=== PATIENT | female | born 1980 | race Caucasian/White ===

== ENCOUNTER → 2017-04-15 | Outpatient (CLI) | payer MEDICARE, MEDICAID ==
[~2017-04-15] MED LIST: 00186-0372-20 IH; ALBUTEROL0.83 MG/ML IH; BACTRIM DS 8001 TAB PO; CHANTIX START M1 TAB PO; EXCEDRIN TENSIO1 TAB PO; FERROUS SULFATE65 MG PO; GLUCOPHAGE500 MG/TAB PO; IMITREX100 MG PO; LEXAPRO20 MG PO; NORCO 325 MG-51 TAB PO; NUVARING VAG RING VG; PERCOCET 325 MG1 TA2 PO; PHENERGAN 25 TA25 MG PO; PRENATAL1 TA7 PO; PRILOSEC 20MG20 MG PO; PROAIR HFA0.09 MG/AC IH; REGLAN 10MG10 MG/TAB PO; ROBAXIN 50500 MG/TAB PO; VITAMIN B-6100 MG PO; VITAMINC1000TA PO; ZYRTEC 10MG10 MG PO
[2017-04-15 17:42] LABS: ALBUMIN 4.1 gm/dL (3.5-5.0); BILIRUBIN,TOTAL 0.5 mg/dL (0.0-1.0); CALCIUM 9.4 mg/dL (8.4-10.2); CHOLESTEROL RISK RATIO 3.1; CREATININE, serum 0.96 mg/dL (0.52-1.25); POTASSIUM 4.2 mmol/L (3.4-5.0); TOTAL PROTEIN 7.2 gm/dL (6.4-8.2)
[2017-04-15 18:10] LABS: TSH w REFLEX 1.82 uIU/mL (0.465-4.680)
== END ==
LOC: COL.LAB 11:52
PROVIDERS: Family Medicine
DX: E66.9 Obesity, unspecified (principal)

== ENCOUNTER → 2017-04-15 | Outpatient (CLI) | payer MEDICARE, MEDICAID ==
[~2017-04-15] VITALS: Ht 175.3 cm; Wt 167.4 kg
[2017-04-15 09:40] VITALS: BP 110/54; PULSE 64
== END ==
LOC: LIGHT 09:26
DX: E28.2 Polycystic ovarian syndrome (principal); K21.9 Gastro-esophageal reflux disease without esophagitis; E66.01 Morbid (severe) obesity due to excess calories; Z68.43 Body mass index [BMI] 50.0-59.9, adult; Z71.3 Dietary counseling and surveillance; M15.9 Polyosteoarthritis, unspecified
CPT/HCPCS: G0463

== ENCOUNTER 2017-04-16 20:30 | Emergency (ER) | payer MEDICARE, MEDICAID ==
[~2017-04-16] VITALS: Ht 175.3 cm; Wt 167.7 kg
[2017-04-16 20:31] VITALS: TEMP 98.3
[2017-04-16 21:17] LABS: BASO # 0.1 (0.0-0.2); BASO % 0.3 % (0.0-2.0); EOS # 0.2 (0.0-0.7); EOS % 1.2 % (0-4.0); GRAN # 13.5 (1.4-6.5); GRAN % 78.5 % (42.2-75.2); HEMATOCRIT 42.4 % (37.0-47.0); HEMOGLOBIN 14.2 g/dl (12.5-16.0); LYMPH # 2.2 (1.2-3.4); LYMPH % 12.9 % (20.0-51.0); MEAN CELL VOLUME 91 fl (80.0-100.0); MEAN CORPUSCULAR HEMOGLOBIN 31 pg (27.0-31.0); MEAN CORPUSCULAR HGB CONC 34 g/dl (33.0-37.0); MEAN PLATELET VOLUME 9.7 fl (7.4-10.4); MONO # 1.1 (0.1-0.6); MONO % 6.3 % (1.7-9.3); PLATELET COUNT 249 K/mm3 (130-400); RED BLOOD COUNT 4.64 M/mm3 (4.10-5.30)
[2017-04-16 21:42] LABS: ALBUMIN 4.1 gm/dL (3.5-5.0); BILIRUBIN,TOTAL 0.7 mg/dL (0.0-1.0); C-REACTIVE PROTEIN 7.1 mg/dL (0.0-0.9); CALCIUM 9.3 mg/dL (8.4-10.2); CREATININE, serum 0.96 mg/dL (0.52-1.25); TOTAL PROTEIN 7.6 gm/dL (6.4-8.2)
[2017-04-16] MEDS ORDERED: PERCOCET 325 MG1 TA2 PO (23:41)
[2017-04-16 23:49] VITALS: BP 132/78; PULSE 88
== END 2017-04-16 23:47 | disposition home or self-care (01) ==
LOC: COL.ER 20:30
PROVIDERS: Emergency Medicine
DX: L02.31 Cutaneous abscess of buttock (principal); L03.317 Cellulitis of buttock; K21.9 Gastro-esophageal reflux disease without esophagitis; J45.909 Unspecified asthma, uncomplicated; E66.01 Morbid (severe) obesity due to excess calories; M54.5 Low back pain; G89.29 Other chronic pain; Z68.43 Body mass index [BMI] 50.0-59.9, adult
CPT/HCPCS: J3010; J7030; J7050; Q9967

== ENCOUNTER → 2018-07-21 | Outpatient (CLI) | payer MEDICARE, MEDICAID ==
[~2018-07-21] VITALS: Ht 175.3 cm; Wt 162.6 kg
[~2018-07-21] MED LIST changes: +IBU800 M1 PO
[2018-07-21 14:03] VITALS: BP 136/70; PULSE 72
== END ==
LOC: LIGHT 13:33
DX: E28.2 Polycystic ovarian syndrome (principal); F31.81 Bipolar II disorder; G43.909 Migraine, unspecified, not intractable, without status migrainosus; E66.01 Morbid (severe) obesity due to excess calories; Z68.43 Body mass index [BMI] 50.0-59.9, adult; Z71.3 Dietary counseling and surveillance
CPT/HCPCS: G0463

== ENCOUNTER → 2018-08-16 | Outpatient (CLI) | payer MEDICARE, MEDICAID | LOC: LIGHT 13:31 | DX: Z76.89 Persons encountering health services in other specified circumstances (principal); E66.01 Morbid (severe) obesity due to excess calories ==

== ENCOUNTER → 2018-09-22 | Outpatient (CLI) | payer MEDICARE, MEDICAID ==
[~2018-09-22] VITALS: Ht 175.3 cm; Wt 166.9 kg
[2018-09-22 09:37] VITALS: BP 130/90; PULSE 60
== END ==
LOC: LIGHT 08-02 11:27
DX: E28.2 Polycystic ovarian syndrome (principal); F31.81 Bipolar II disorder; G43.909 Migraine, unspecified, not intractable, without status migrainosus; E66.01 Morbid (severe) obesity due to excess calories; Z68.43 Body mass index [BMI] 50.0-59.9, adult; Z71.3 Dietary counseling and surveillance
CPT/HCPCS: G0463

== ENCOUNTER 2018-10-15 18:29 | Emergency (ER) | payer MEDICARE, MEDICAID ==
[~2018-10-15] VITALS: Ht 175.3 cm; Wt 160.5 kg
[2018-10-15 18:36] VITALS: BP 133/66; PULSE 77; TEMP 98.6
[2018-10-15] MEDS ORDERED: PROAIR HFA0.09 MG/AC IH (18:51)
[2018-10-15] MEDS ORDERED: FLEXERIL 1010 MG/TAB PO (19:20)
== END 2018-10-15 19:25 | disposition home or self-care (01) ==
LOC: COL.ER 18:29
DX: M54.5 Low back pain (principal); G89.29 Other chronic pain; F31.9 Bipolar disorder, unspecified; F17.210 Nicotine dependence, cigarettes, uncomplicated; Z79.1 Long term (current) use of non-steroidal anti-inflammatories (NSAID)
CPT/HCPCS: J1170

== ENCOUNTER 2018-10-23 17:48 | Emergency (ER) | payer MEDICARE, MEDICAID ==
[~2018-10-23] VITALS: Ht 175.3 cm; Wt 160.5 kg
[~2018-10-23 17:48] MED LIST changes: +FLEXERIL 1010 MG/TAB PO
[2018-10-23 17:57] VITALS: BP 146/66; TEMP 97.9
[2018-10-23] MEDS ORDERED: FLEXERIL 1010 MG/TAB PO (19:32)
[2018-10-23 19:45] VITALS: PULSE 67
== END 2018-10-23 19:46 | disposition home or self-care (01) ==
LOC: COL.ER 17:48
DX: M54.31 Sciatica, right side (principal); F31.9 Bipolar disorder, unspecified; J45.909 Unspecified asthma, uncomplicated; Z88.1 Allergy status to other antibiotic agents
CPT/HCPCS: J1885

== ENCOUNTER → 2018-10-27 | Outpatient (CLI) | payer MEDICARE, MEDICAID ==
[~2018-10-27] VITALS: Ht 175.3 cm; Wt 159.0 kg
[2018-10-27 10:19] VITALS: BP 100/76; PULSE 72
== END ==
LOC: LIGHT
DX: E28.2 Polycystic ovarian syndrome (principal); F31.81 Bipolar II disorder; G43.909 Migraine, unspecified, not intractable, without status migrainosus; E66.01 Morbid (severe) obesity due to excess calories; Z68.43 Body mass index [BMI] 50.0-59.9, adult; Z71.3 Dietary counseling and surveillance
CPT/HCPCS: G0463

== ENCOUNTER 2018-11-14 01:28 | Emergency (ER) | payer MEDICARE, MEDICAID ==
[~2018-11-14] VITALS: Ht 175.3 cm; Wt 160.5 kg
[2018-11-14 01:31] VITALS: BP 132/72; TEMP 98.2
[2018-11-14 02:54] VITALS: PULSE 74
== END 2018-11-14 02:54 | disposition home or self-care (01) ==
LOC: COL.ER 01:28
DX: G43.909 Migraine, unspecified, not intractable, without status migrainosus (principal); F31.9 Bipolar disorder, unspecified; J45.909 Unspecified asthma, uncomplicated; F17.210 Nicotine dependence, cigarettes, uncomplicated
CPT/HCPCS: J1200; J1885; J2765

== ENCOUNTER 2018-11-24 03:11 | Emergency (ER) | payer MEDICARE, MEDICAID ==
[~2018-11-24] VITALS: Ht 175.3 cm; Wt 160.5 kg
[~2018-11-24 03:11] MED LIST changes: -ZOFRAN 4MG T4 MG/TAB PO
[2018-11-24 03:15] VITALS: BP 147/86
[2018-11-24 03:32] LABS: COLLECTION METHOD CLEAN CATCH
[2018-11-24 03:41] LABS: MUCOUS Present /lpf; PH 5 (5-8); URINE APPEARANCE Hazy; URINE BACTERIA None Seen /hpf; URINE BILIRUBIN Negative (NEGATIVE); URINE BLOOD 2+ (NEGATIVE); URINE COLOR Yellow; URINE GLUCOSE Negative (NEGATIVE); URINE KETONE Negative (NEGATIVE); URINE LEUKOCYTE ESTERASE Negative (NEGATIVE); URINE NITRATE Negative (NEGATIVE); URINE PROTEIN(semi-quant) Negative (NEGATIVE); URINE RBC 0-2 /hpf; URINE WBC 0-2 /hpf
[2018-11-24 04:04] LABS: BASO # 0.1 (0.0-0.2); BASO % 0.5 % (0.0-2.0); EOS # 0.3 (0.0-0.7); EOS % 1.9 % (0-4.0); GRAN # 9.1 (1.4-6.5); GRAN % 62.6 % (42.2-75.2); HEMATOCRIT 43.2 % (37.0-47.0); HEMOGLOBIN 14.5 g/dl (12.5-16.0); LYMPH # 4.3 (1.2-3.4); LYMPH % 29.2 % (20.0-51.0); MEAN CELL VOLUME 92 fl (80.0-100.0); MEAN CORPUSCULAR HEMOGLOBIN 31 pg (27.0-31.0); MEAN CORPUSCULAR HGB CONC 34 g/dl (33.0-37.0); MEAN PLATELET VOLUME 9.2 fl (7.4-10.4); MONO # 0.8 (0.1-0.6); MONO % 5.2 % (1.7-9.3); PLATELET COUNT 307 K/mm3 (130-400); RED BLOOD COUNT 4.71 M/mm3 (4.10-5.30); REDCELL DISTRIBUTION WIDTH-CV 12.6 % (11.5-14.5)
[2018-11-24 04:16] LABS: ALBUMIN 4.3 gm/dL (3.5-5.0); BILIRUBIN,TOTAL 0.2 mg/dL (0.0-1.0); CALCIUM 9.4 mg/dL (8.4-10.2); CREATININE, serum 0.98 (0.52-1.25); TOTAL PROTEIN 8.2 gm/dL (6.4-8.2)
[2018-11-24] MEDS ORDERED: ZOFRAN 4MG T4 MG/TAB PO (05:16)
[2018-11-24 05:37] VITALS: PULSE 84; TEMP 98
== END 2018-11-24 05:37 | disposition home or self-care (01) ==
LOC: COL.ER 03:11
PROVIDERS: Emergency Medicine
DX: N93.9 Abnormal uterine and vaginal bleeding, unspecified (principal); R10.2 Pelvic and perineal pain; E66.9 Obesity, unspecified; F17.210 Nicotine dependence, cigarettes, uncomplicated; Z90.89 Acquired absence of other organs
CPT/HCPCS: J0696

== ENCOUNTER → 2018-11-24 | Outpatient (CLI) | payer MEDICARE, MEDICAID ==
[~2018-11-24] MED LIST changes: +ZOFRAN 4MG T4 MG/TAB PO
== END ==
LOC: COL.RAD 09:53
DX: N93.9 Abnormal uterine and vaginal bleeding, unspecified (principal)

== ENCOUNTER 2018-12-17 00:15 | Emergency (ER) | payer MEDICARE, MEDICAID ==
[~2018-12-17] VITALS: Ht 175.3 cm; Wt 160.5 kg
[~2018-12-17 00:15] MED LIST changes: +IMITREX50 MG PO; +PROVERA 10MG10 MG PO; +ZOFRAN 4MG T4 MG/TAB PO
[2018-12-17 00:23] VITALS: BP 149/88; TEMP 98.8
[2018-12-17] MEDS ORDERED: AMOXICILLIN 8751 TAB PO (02:24)
[2018-12-17 02:59] VITALS: PULSE 82
== END 2018-12-17 03:01 | disposition home or self-care (01) ==
LOC: COL.ER 00:15
DX: S61.234A Puncture wound without foreign body of right ring finger without damage to nail, initial encounter (principal); J45.909 Unspecified asthma, uncomplicated; G43.909 Migraine, unspecified, not intractable, without status migrainosus; F31.9 Bipolar disorder, unspecified; F17.210 Nicotine dependence, cigarettes, uncomplicated; Z23 Encounter for immunization; Z79.1 Long term (current) use of non-steroidal anti-inflammatories (NSAID); W54.0XXA Bitten by dog, initial encounter; Y92.830 Public park as the place of occurrence of the external cause
CPT/HCPCS: 90375

== ENCOUNTER 2018-12-20 18:36 | Outpatient (RCR) | payer MEDICARE, MEDICAID ==
[~2018-12-20 18:36] MED LIST changes: +AMOXICILLIN 8751 TAB PO
[2018-12-27 17:16] VITALS: BP 117/72; PULSE 80; TEMP 97.1
[2019-01-18] MEDS ORDERED: BACTRIM 400 MG-1 TAB PO (19:33)
== END 2019-03-20 | disposition home or self-care (01) ==
LOC: EUO
DX: Z23 Encounter for immunization (principal); Z20.3 Contact with and (suspected) exposure to rabies; S61.230A Puncture wound without foreign body of right index finger without damage to nail, initial encounter; W54.0XXA Bitten by dog, initial encounter

== ENCOUNTER → 2018-12-29 | Outpatient (CLI) | payer MEDICARE, MEDICAID ==
[~2018-12-29] VITALS: Ht 175.3 cm; Wt 159.2 kg
[2018-12-29 13:48] VITALS: BP 106/66; PULSE 84
== END ==
LOC: LIGHT
DX: E28.2 Polycystic ovarian syndrome (principal); F31.81 Bipolar II disorder; G43.909 Migraine, unspecified, not intractable, without status migrainosus; E66.01 Morbid (severe) obesity due to excess calories; Z68.43 Body mass index [BMI] 50.0-59.9, adult; Z71.3 Dietary counseling and surveillance
CPT/HCPCS: G0463

== ENCOUNTER 2019-01-16 10:00 | Outpatient (RCR) | payer MEDICARE, MEDICAID ==
[~2019-01-16 10:00] MED LIST changes: -BACTRIM 400 MG-1 TAB PO
[2019-01-18] MEDS ORDERED: BACTRIM 400 MG-1 TAB PO (19:33)
== END 2019-02-14 13:50 | disposition home or self-care (01) ==
LOC: WSPT 10:00
DX: M15.9 Polyosteoarthritis, unspecified (principal); Z98.1 Arthrodesis status

== ENCOUNTER → 2019-01-16 | Outpatient (CLI) | payer MEDICARE, MEDICAID ==
[~2019-01-16] MED LIST changes: +BACTRIM 400 MG-1 TAB PO
[2019-01-16 14:07] LABS: COLLECTION METHOD CLEAN CATCH
[2019-01-16 14:14] LABS: BASO % 0.5 % (0.0-2.0); EOS # 0.2 (0.0-0.7); EOS % 2.8 % (0-4.0); GRAN # 4.6 (1.4-6.5); GRAN % 57.9 % (42.2-75.2); HEMATOCRIT 38.4 % (37.0-47.0); HEMOGLOBIN 12.8 g/dl (12.5-16.0); LYMPH # 2.6 (1.2-3.4); LYMPH % 32.7 % (20.0-51.0); MEAN CELL VOLUME 92 fl (80.0-100.0); MEAN CORPUSCULAR HEMOGLOBIN 31 pg (27.0-31.0); MEAN CORPUSCULAR HGB CONC 33 g/dl (33.0-37.0); MEAN PLATELET VOLUME 9.2 fl (7.4-10.4); MONO # 0.5 (0.1-0.6); MONO % 5.7 % (1.7-9.3); PLATELET COUNT 286 K/mm3 (130-400); RED BLOOD COUNT 4.17 M/mm3 (4.10-5.30); REDCELL DISTRIBUTION WIDTH-CV 13.2 % (11.5-14.5)
[2019-01-16 14:14] LABS: PH 5 (5-8); SQUAMOUS EPITHELIAL 0-2 /hpf; URINE APPEARANCE Clear; URINE BACTERIA None Seen /hpf; URINE BILIRUBIN Negative (NEGATIVE); URINE BLOOD 2+ (NEGATIVE); URINE COLOR Yellow; URINE GLUCOSE Negative (NEGATIVE); URINE KETONE Negative (NEGATIVE); URINE LEUKOCYTE ESTERASE Negative (NEGATIVE); URINE NITRATE Negative (NEGATIVE); URINE PROTEIN(semi-quant) Negative (NEGATIVE); URINE RBC 20-50 /hpf; URINE UROBILINOGEN Negative (NEGATIVE); URINE WBC 0-2 /hpf
== END ==
LOC: COL.LAB 13:42
PROVIDERS: Family Medicine
DX: Z01.818 Encounter for other preprocedural examination (principal); N93.9 Abnormal uterine and vaginal bleeding, unspecified

== ENCOUNTER 2019-01-18 18:20 | Emergency (ER) | payer MEDICARE, MEDICAID ==
[~2019-01-18] VITALS: Ht 175.3 cm; Wt 158.2 kg
[2019-01-18 18:32] VITALS: BP 119/59; TEMP 97.6
[2019-01-18] MEDS ORDERED: BACTRIM 400 MG-1 TAB PO (19:33)
[2019-01-18 19:39] LABS: BASO # 0.1 (0.0-0.2); BASO % 0.8 % (0.0-2.0); EOS # 0.3 (0.0-0.7); EOS % 3.2 % (0-4.0); GRAN # 4.8 (1.4-6.5); GRAN % 54.6 % (42.2-75.2); HEMATOCRIT 38.9 % (37.0-47.0); HEMOGLOBIN 12.8 g/dl (12.5-16.0); LYMPH % 34.3 % (20.0-51.0); MEAN CELL VOLUME 93 fl (80.0-100.0); MEAN CORPUSCULAR HEMOGLOBIN 31 pg (27.0-31.0); MEAN CORPUSCULAR HGB CONC 33 g/dl (33.0-37.0); MEAN PLATELET VOLUME 9.2 fl (7.4-10.4); MONO # 0.6 (0.1-0.6); MONO % 6.6 % (1.7-9.3); PLATELET COUNT 285 K/mm3 (130-400); REDCELL DISTRIBUTION WIDTH-CV 13.2 % (11.5-14.5)
[2019-01-18 19:52] LABS: ALBUMIN 4.3 gm/dL (3.5-5.0); BILIRUBIN,TOTAL 0.3 mg/dL (0.0-1.0); C-REACTIVE PROTEIN 1.4 mg/dL (0.0-0.9); CALCIUM 9.3 mg/dL (8.4-10.2); CREATININE, serum 0.94 (0.52-1.25); POTASSIUM 4.2 mmol/L (3.4-5.0); TOTAL PROTEIN 7.7 gm/dL (6.4-8.2)
[2019-01-18 19:58] LABS: ERYTHROCYTE SEDIMENTATION RATE 22 mm/hr (0-20)
[2019-01-18 21:01] VITALS: PULSE 64
== END 2019-01-18 21:01 | disposition home or self-care (01) ==
LOC: COL.ER 18:20
PROVIDERS: Emergency Medicine
DX: S06.0X0A Concussion without loss of consciousness, initial encounter (principal); G43.909 Migraine, unspecified, not intractable, without status migrainosus; J45.909 Unspecified asthma, uncomplicated; W22.8XXA Striking against or struck by other objects, initial encounter; Y99.0 Civilian activity done for income or pay
CPT/HCPCS: J2405; J3010; J7030

== ENCOUNTER 2019-01-29 18:42 | Emergency (ER) | payer MEDICARE, MEDICAID ==
[~2019-01-29] VITALS: Ht 175.3 cm; Wt 158.2 kg
[~2019-01-29 18:42] MED LIST changes: +BACTRIM 400 MG-1 TAB PO
[2019-01-29 18:55] VITALS: BP 130/71; TEMP 98.4
[2019-01-29 20:43] VITALS: PULSE 65
== END 2019-01-29 20:50 | disposition home or self-care (01) ==
LOC: COL.ER 18:42
DX: M25.561 Pain in right knee (principal); F17.210 Nicotine dependence, cigarettes, uncomplicated; F31.9 Bipolar disorder, unspecified; Z90.89 Acquired absence of other organs
CPT/HCPCS: L1846

== ENCOUNTER → 2019-02-17 | Outpatient (CLI) | payer MEDICARE, MEDICAID ==
[2019-02-17 17:46] LABS: BASO # 0.1 (0.0-0.2); BASO % 0.6 % (0.0-2.0); EOS # 0.3 (0.0-0.7); EOS % 2.6 % (0-4.0); GRAN # 6.5 (1.4-6.5); GRAN % 63.7 % (42.2-75.2); HEMATOCRIT 40.3 % (37.0-47.0); HEMOGLOBIN 13.1 g/dl (12.5-16.0); LYMPH # 2.8 (1.2-3.4); LYMPH % 27.3 % (20.0-51.0); MEAN CELL VOLUME 94 fl (80.0-100.0); MEAN CORPUSCULAR HEMOGLOBIN 30 pg (27.0-31.0); MEAN CORPUSCULAR HGB CONC 33 g/dl (33.0-37.0); MEAN PLATELET VOLUME 8.9 fl (7.4-10.4); MONO # 0.6 (0.1-0.6); MONO % 5.4 % (1.7-9.3); PLATELET COUNT 277 K/mm3 (130-400); RED BLOOD COUNT 4.31 M/mm3 (4.10-5.30); REDCELL DISTRIBUTION WIDTH-CV 13.2 % (11.5-14.5)
[2019-02-17 18:00] LABS: ALBUMIN 4.1 gm/dL (3.5-5.0); BILIRUBIN,TOTAL 0.2 mg/dL (0.0-1.0); CALCIUM 9.9 mg/dL (8.4-10.2); CREATININE, serum 0.89 (0.52-1.25); POTASSIUM 4.5 mmol/L (3.4-5.0); TOTAL PROTEIN 7.5 gm/dL (6.4-8.2)
== END ==
LOC: COL.LAB 17:14
PROVIDERS: Family Medicine
DX: R11.10 Vomiting, unspecified (principal); R06.00 Dyspnea, unspecified; R19.7 Diarrhea, unspecified